=== PATIENT | male | born 1965 | race Caucasian/White ===

== ENCOUNTER 2021-06-20 18:50 | Emergency (ER) | payer BC, SELFPAY ==
--- NOTE | 2021-06-20 18:52 | ED.URI ---
HPI - URI/Sore Throat General Chief Complaint: Upper Respiratory Infection Stated Complaint: Headache/Chest Congestion Time Seen by Provider: 06/20/21 18:52 Source: patient and RN notes reviewed History of Present Illness HPI Narrative: Patient is a 56-year-old male who presents the urgent care with complaints of chest congestion, headache, sore throat, body aches, chills. Patient states that it started yesterday. Patient states that he has been exposed by several employees at his workplace to COVID. Patient has had a COVID-vaccine and has also had the COVID booster. Patient has been using [id number] medication as needed for his symptoms such as Tylenol. Patient denies of any cough or shortness of breath. No other acute complaints. No acute distress noted. Patient read the plan of care. Some parts of this dictation were generated by voice recognition software and may contain typographical and/or grammatical inaccuracies. Related Data Home Medications Medication Instructions Recorded Confirmed amlodipine 5 mg PO DAILY 06/20/21 06/20/21 cyclobenzaprine 10 mg PO HS 06/20/21 06/20/21 lisinopril 40 mg PO DAILY 06/20/21 06/20/21 Allergies Allergy/AdvReac Type Severity Reaction Status Date / Time aspirin Allergy Swelling Verified 06/20/21 19:05 naproxen Allergy Swelling Verified 06/20/21 19:05 Review of Systems Review of Systems: CONSTITUTIONAL: Reports fever, chills, sweats EYES: Denies visual changes, redness, or discharge. ENT: Reports sore throat and congestion CARDIOVASCULAR: Denies chest pain, palpitations, or edema. RESPIRATORY: Denies cough or dyspnea. GASTROINTESTINAL: Denies abdominal pain, nausea, vomiting, or diarrhea. GENITOURINARY: Denies dysuria or hematuria. SKIN: Denies rash or itching. MUSCULOSKELETAL: Denies back pain, joint pain. Reports body aches NEUROLOGIC:. Reports of headache All other systems reviewed are negative, except as documented in HPI. PMFSH Comments At the time of my signature, I reviewed and agree with the nursing past medical, surgical, social, and family history. There is no relevant family history pertinent to the patient complaint. Exam Narrative: GENERAL: This is a well-nourished, well-developed patient, in no apparent distress. HEAD: normocephalic, atraumatic. EYES: PERRL. Sclera clear/white. Vision is grossly intact. EARS: External ears normal, auditory canals clear and without drainage, TMs normal without perforation. Hearing grossly intact. NOSE: External nose normal with no obvious nasal discharge, nares without redness, clear rhinorrhea. THROAT: Mucous membranes moist. Moderate erythema noted posterior pharynx with moderate postnasal drainage NECK: Neck supple, non-tender without lymphadenopathy CARDIOVASCULAR: Regular rate and rhythm without murmurs, gallops, or rubs. RESPIRATORY: Clear to auscultation. Breath sounds equal bilaterally. No wheezes, rales, or rhonchi. SKIN: warm, intact with no suspicious lesions or rash, good texture and turgor. NEURO: awake, alert, and oriented to person, place and time. There were no obvious focal neurologic abnormalities. EXTREMITIES: No clubbing, cyanosis, or edema. Course Course Level of Care: Express Care Visit Vital Signs Vital signs: Vital Signs Temperature 98.2 F 06/20/21 18:58 Pulse Rate 114 H 06/20/21 18:58 Respiratory Rate 20 06/20/21 18:58 Blood Pressure 136/79 06/20/21 18:58 Pulse Oximetry 98 06/20/21 18:58 Temperature 98.2 F 06/20/21 18:58 Pulse Rate 114 H 06/20/21 18:58 Respiratory Rate 20 06/20/21 18:58 Blood Pressure 136/79 06/20/21 18:58 Pulse Oximetry 98 06/20/21 18:58 Reviewed MDM - URI/Sore Throat MDM Narrative Medical decision making narrative: Reviewed lab results with the patient. He is aware that flu swab was negative. You are likely positive for COVID however you are too soon to test on a rapid COVID test. Considering your exposures, and your symptoms, ad
[2021-06-20 18:58] VITALS: BP 136/79; PULSE 114; RESP 20; TEMP 36.8; O2SAT 98
== END 2021-06-20 19:38 | disposition home or self-care (01) ==
PROVIDERS: Emergency Provider Nurse Practitioner Family
DX: Z20.822 Contact with and (suspected) exposure to COVID-19 (principal); E78.00 Pure hypercholesterolemia, unspecified; I10 Essential (primary) hypertension
CPT/HCPCS: 87804; 99203; G0463